=== PATIENT | male | born 1980 | race Two or more races ===

== ENCOUNTER 2018-08-04 23:02 | Emergency (ER) | payer OTHER ==
[~2018-08-04] VITALS: Ht 177.8 cm; Wt 79.4 kg
[2018-08-04] MEDS ORDERED: TDAP [DIPH/PERTUSSIS/TET] 0.5 ML VIAL IM ONE (23:30)
--- NOTE | 2018-08-05 00:15 | NUR ---
bbra from bar s/s falling of bar stool and hitting back of head. small lac/abbrassion noted in back of head. -ko. -dizzy. -n/v. +etoh. pt is aaox4. rr even and unlabored. no s/s of acute distress noted. pt placed on monitor and pox. will continue to monitor pt
[2018-08-05] MEDS ORDERED: TDAP [DIPH/PERTUSSIS/TET] 0.5 ML VIAL IM ONE (01:03)
--- NOTE | 2018-08-05 01:21 | NUR ---
Patient discharged to friend to go home in stable condition. Written and verbal after care instructions given. Patient verbalizes understanding of instruction. Pt ambulated with steady gait noted. Pt being driven home by friend.
[2018-08-05 01:22] VITALS: BP 135/88
== END 2018-08-05 01:24 | disposition home or self-care (01) ==
LOC: ER 23:05
DX: S01.01XA Laceration without foreign body of scalp, initial encounter (principal); R51 Headache; Z60.2 Problems related to living alone; W18.09XA Striking against other object with subsequent fall, initial encounter; Y93.89 Activity, other specified; Y92.89 Other specified places as the place of occurrence of the external cause; Y99.8 Other external cause status
CPT/HCPCS: 70450; 72125; 90471; 90715; 99284; A4606; A6402